=== PATIENT | female | born 1975 | race Caucasian/White ===

== ENCOUNTER 2022-10-05 11:25 | Day surgery (SDC) | payer OTHER ==
[2022-10-04 12:50] VITALS: BMI 28.3
[2022-10-05] MEDS ORDERED: Ondansetron PF 4 MG/2 ML Vial ONE ×2 (13:21→13:30)
[2022-10-05] MEDS ORDERED: Famotidine/PF 20 mg/2ml Vial ONE (13:21)
[2022-10-05] MEDS ORDERED: Midazolam HCl 2 mg/2 ml Vial ONE (13:21)
[2022-10-05] MEDS ORDERED: Dexamethasone 20 MG/5 ML VIAL ONE (13:30)
[2022-10-05] MEDS ORDERED: Lidocaine 1% PF 5 ML VIAL ONE (13:30)
[2022-10-05] MEDS ORDERED: PROPOFOL 200 MG/20 ML VIAL ONE (13:30)
== END 2022-10-05 15:45 | disposition home or self-care (01) ==
LOC: MRI 11:25
PROVIDERS: ATTEND Nurse Practitioner Family
DX: R51.9 Headache, unspecified (principal); J45.909 Unspecified asthma, uncomplicated; I10 Essential (primary) hypertension; E78.5 Hyperlipidemia, unspecified; K21.9 Gastro-esophageal reflux disease without esophagitis; F41.9 Anxiety disorder, unspecified; Z79.1 Long term (current) use of non-steroidal anti-inflammatories (NSAID); Z79.899 Other long term (current) drug therapy
CPT/HCPCS: 70551; J2250; J2405; S0028